=== PATIENT | female | born 1975 | race Caucasian/White ===

== ENCOUNTER 2018-10-27 16:20 | Emergency (ER) | payer OTHER ==
[2018-10-27 16:25] VITALS: BP 138/89; PULSE 112; BMI 35.9
[2018-10-27] MEDS ORDERED: SODIUM CHLORIDE 1,000 ML IV STA ×2 (16:43→17:57)
[2018-10-27] MEDS ORDERED: ONDANSETRON 4 MG/2 ML VIAL IVPUSH ONE (17:04)
[2018-10-27] MEDS ORDERED: FAMOTIDINE 20 MG/50 ML IVPB 20 MG/50 ML MG IVPB ONE ×2 (17:04→17:44)
[2018-10-27] MEDS ORDERED: ONDANSETRON 4 MG/2 ML VIAL ONE (17:44)
--- NOTE | 2018-10-27 17:44 | PDOC ---
History of Present Illness - General Chief Complaint: Vomiting/Diarrhea Stated Complaint: VOMITING, DIARRHEA Time Seen by Provider: 10/27/18 16:43 History Source: Patient Exam Limitations: No Limitations - History of Present Illness Initial Comments: 43 yo F presents with nausea, vomiting, diarrhea x1 day. She states she has had recent congestion and cough, then today she suddenly developed nausea, vomiting , diarrhea. Emesis is bilious, non-bloody. She c/o diffuse abdominal cramping. Last episode of vomiting was a few hours ago, but she is still nauseated. Denies fever. No known sick contacts. Past History - Past Medical History Allergies/Adverse Reactions: Allergies Allergy/AdvReac Type Severity Reaction Status Date / Time No Known Allergies Allergy Verified 10/27/18 16:22 Home Medications: Ambulatory Orders Norethindrone AC-Eth Estradiol [Loestrin 21 1-20 Tablet] 1 each PO DAILY Ondansetron [Zofran Odt -] 4 mg SL TID #12 od.tablet 10/27/18 COPD: No - Surgical History Cholecystectomy: Yes - Suicide/Smoking/Psychosocial Hx Smoking Status: No Smoking History: Never smoked Have you smoked in the past 12 months: No Number of Cigarettes Smoked Daily: 0 Information on smoking cessation initiated: No Hx Alcohol Use: No Drug/Substance Use Hx: No Substance Use Type: None Review of Systems - Review of Systems Able to Perform ROS?: Yes Comments:: GENERAL/CONSTITUTIONAL: No fever or chills. No weakness. HEAD, EYES, EARS, NOSE AND THROAT: No change in vision. No ear pain or discharge. No sore throat. CARDIOVASCULAR: No chest pain or shortness of breath. RESPIRATORY: No cough, wheezing, or hemoptysis. GASTROINTESTINAL: +Nausea, vomiting, diarrhea. GENITOURINARY: No dysuria, frequency, or change in urination. MUSCULOSKELETAL: No joint or muscle swelling. No neck or back pain. +Myalgias. SKIN: No rash NEUROLOGIC: No headache, vertigo, loss of consciousness, or change in strength/ sensation. ENDOCRINE: No increased thirst. No abnormal weight change. HEMATOLOGIC/LYMPHATIC: No anemia, easy bleeding, or history of blood clots. ALLERGIC/IMMUNOLOGIC: No hives or skin allergy. *Physical Exam - Vital Signs Last Vital Signs Temp Pulse Resp BP Pulse Ox 112 H 20 138/89 99 10/27/18 16:20 10/27/18 16:20 10/27/18 16:20 10/27/18 16:20 - Physical Exam Comments: GENERAL: Awake, alert, and fully oriented, in no acute distress HEAD: No signs of trauma EYES: PERRLA, EOMI, sclera anicteric, conjunctiva clear ENT: Auricles normal inspection, hearing grossly normal, nares patent, oropharynx clear without exudates. Dry mucosa NECK: Normal ROM, supple, no lymphadenopathy, JVD, or masses LUNGS: Breath sounds equal, clear to auscultation bilaterally. No wheezes, and no crackles HEART: Tachycardic with regular rhythm, normal S1 and S2, no murmurs, rubs or gallops ABDOMEN: Soft, diffuse mild tenderness, normoactive bowel sounds. No guarding, no rebound. No masses EXTREMITIES: Normal range of motion, no edema. No clubbing or cyanosis. No cords, erythema, or tenderness NEUROLOGICAL: Cranial nerves II through XII grossly intact. Normal speech, normal gait SKIN: Warm, Dry, normal turgor, no rashes or lesions noted. Moderate Sedation - Procedure Monitoring Vital Signs: Procedure Monitoring Vital Signs Temperature Pulse Rate 112 H 10/27/18 16:20 Respiratory Rate 20 10/27/18 16:20 Blood Pressure 138/89 10/27/18 16:20 O2 Sat by Pulse Oximetry (%) 99 10/27/18 16:20 ED Treatment Course - LABORATORY CBC & Chemistry Diagram: 10/27/18 17:37 10/27/18 17:37 Medical Decision Making - Medical Decision Making 10/27/18 19:[address] Olmedo at shift change, reassess after IV fluids. She already reports feeling much better. No signs of acute abdomen. I have sent a flu swab, as she has had symptoms for the past few days, has a daughter who is special needs at home, is not able to get the flu vaccine. *DC/Admit/Observation/Transfer Diagnosis at time of Disposition: Nausea vomiting and diarrhea - Discharge Dispostion Disposition: HOME Condition at time of disposition: Stable Decision to Admit order: No - Prescriptions Prescriptions: Ondansetron [Zofran Odt -] 4 mg SL TID #12 od.tablet - Referrals - Patient Instructions Printed Discharge Instructions: DI for Diarrhea and Traveler's Diarrhea -- Adult, DI for Vomiting -- Adult - Post Discharge Activity
[2018-10-27 17:49] LABS: BASO % 1.2 % (0-2.0); EOS % 0.1 % (0-4.5); HEMATOCRIT 46.6 % (32.4-45.2); HEMOGLOBIN 15.2 GM/dl (10.7-15.3); LYMPH % 8.9 % (8-40); MCH 29.8 pg (25.7-33.7); MCHC 32.5 g/dl (32.0-36.0); MEAN CELL VOLUME 91.5 fl (80-96); MEAN PLT VOLUME 8.9 fl (7.5-11.1); MONO % 0.7 % (3.8-10.2); NEUT % 89.1 % (42.8-82.8); PLATELET COUNT 417 K/MM3 (134-434); RBC 5.09 M/mm3 (3.60-5.2); RDW 12.5 % (11.6-15.6); WHITE BLOOD COUNT 17.6 K/mm3 (4.0-10.8)
[2018-10-27 18:02] LABS: ALK PHOS 58 U/L (32-92); ANION GAP 11 MMOL/L (8-16); BILIRUBIN,TOTAL 0.5 mg/dl (0.2-1.0); BLOOD UREA NITROGEN 16 mg/dl (7-18); CALCIUM 9.1 mg/dl (8.4-10.2); CHLORIDE 103 mmol/L (98-107); CO2 21 mmol/L (22-28); CREATININE 0.7 mg/dl (0.6-1.3); GLUCOSE,RANDOM 146 mg/dl (74-106); POTASSIUM 3.7 mmol/L (3.5-5.1); SGOT/AST 24 U/L (10-42); SGPT/ALT 20 U/L (10-40); SODIUM 135 mmol/L (136-145)
[2018-10-27] MEDS ORDERED: KETOROLAC TROMETHAMINE 30 MG/1 ML VIAL IVPUSH ONE (18:31)
[2018-10-27] MEDS ORDERED: KETOROLAC TROMETHAMINE 30 MG/1 ML VIAL ONE (18:33)
[2018-10-27 18:36] LABS: URINE APPEARANCE Slightly; URINE BILIRUBIN 1+ (NEGATIVE); URINE COLOR Yellow; URINE GLUCOSE (UA) Negative (NEGATIVE); URINE KETONE Trace (NEGATIVE); URINE LEUK ESTERASE Negative (NEGATIVE); URINE NITRITE Negative (NEGATIVE); URINE PROTEIN 2+ (NEGATIVE); URINE UROBILINOGEN 0.2 (0.2-1.0)
[2018-10-27 19:05] LABS: LIPASE 86 U/L (73-393)
[2018-10-27] MEDS ORDERED: SODIUM CHLORIDE 1,000 ML IV ONE (19:19)
--- NOTE | 2018-10-27 19:20 | PDOC ---
*Physical Exam - Vital Signs Last Vital Signs Temp Pulse Resp BP Pulse Ox 112 H 20 138/89 99 10/27/18 16:20 10/27/18 16:20 10/27/18 16:20 10/27/18 16:20 ED Treatment Course - LABORATORY CBC & Chemistry Diagram: 10/27/18 17:37 10/27/18 17:37 - ADDITIONAL ORDERS Additional order review: Laboratory Results 10/27/18 10/27/18 10/27/18 17:37 17:37 17:30 Sodium 135 L Potassium 3.7 Chloride 103 Carbon Dioxide 21 L Anion Gap 11 BUN 16 Creatinine 0.7 Creat Clearance w eGFR > 60 Random Glucose 146 H Calcium 9.1 Total Bilirubin 0.5 AST 24 ALT 20 Alkaline Phosphatase 58 Total Protein 8.0 Albumin 4.0 Lipase 86 Urine Color Yellow Urine Appearance Slightly Urine pH 5.0 Ur Specific [place] >= 1.030 Urine Protein 2+ H Urine Glucose (UA) Negative Urine Ketones Trace Urine Blood 2+ H Urine Nitrite Negative Urine Bilirubin 1+ H Urine Urobilinogen 0.2 Ur Leukocyte Esterase Negative Urine HCG, Qual Negative 10/27/18 17:37 RBC 5.09 MCV 91.5 MCHC 32.5 RDW 12.5 MPV 8.9 Neutrophils % 89.1 H Lymphocytes % 8.9 Monocytes % 0.7 L Eosinophils % 0.1 Basophils % 1.2 - Medications Given in the ED: ED Medications Discontinued Medications Generic Name Dose Route Start Last Admin Trade Name Freq PRN Reason Stop Dose Admin Sodium Chloride 1,000 mls @ 1,000 mls/hr 10/27/18 16:43 10/27/18 17:00 Normal Saline - IV 10/27/18 17:42 1,000 mls/hr ASDIR STA Administration Famotidine/Sodium Chloride 20 mg in 50 mls @ 100 mls/hr 10/27/18 17:04 17:52 Pepcid 20 Mg Premixed Ivpb - IVPB 10/27/18 17:33 100 mls/hr ONCE ONE Administration Sodium Chloride 1,000 mls @ 1,000 mls/hr 10/27/18 17:57 10/27/18 18:44 Normal Saline - IV 10/27/18 18:56 1,000 mls/hr ASDIR STA Administration Ketorolac Tromethamine 30 mg 10/27/18 18:31 10/27/18 18:36 Toradol Injection - IVPUSH 10/27/18 18:32 30 mg ONCE ONE Administration Ondansetron HCl 4 mg 10/27/18 17:04 10/27/18 17:40 Zofran Injection IVPUSH 10/27/18 17:05 4 mg ONCE ONE Administration Progress Note - Progress Note Progress Note: Care of this patient was transferred to md from Dr. Scruggs at 1900 hrs. This is a 43-year-old female who comes in complaining of nausea vomiting and diarrhea times one day. On arrival patient was clinically mildly dehydrated. A workup was initiated including labs and the IV fluids. Patient has finished 1 L of fluid and is feeling much better. Patient's white count is moderately elevated Will reassess and reevaluate after second liter of fluid. Patient feels much better after second liter of fluid able to tolerate by mouth' s. Patient discharged home. *DC/Admit/Observation/Transfer Diagnosis at time of Disposition: Nausea vomiting and diarrhea - Discharge Dispostion Disposition: HOME Condition at time of disposition: Stable - Referrals - Patient Instructions Printed Discharge Instructions: DI for Diarrhea and Traveler's Diarrhea -- Adult, DI for Vomiting -- Adult - Post Discharge Activity
[2018-10-27 21:14] LABS: EPI CELLS FEW /HPF; URINE BACTERIA 4+ /hpf (NEGATIVE)
== END 2018-10-27 19:33 | disposition home or self-care (01) ==
LOC: FER 16:20
PROC: 3E033GC Introduction of Other Therapeutic Substance into Peripheral Vein, Percutaneous Approach (ICD-10-PCS; principal; 2018-10-27)
PROC: 3E0333Z Introduction of Anti-inflammatory into Peripheral Vein, Percutaneous Approach (ICD-10-PCS; 2018-10-27)
PROC: 3E033GC Introduction of Other Therapeutic Substance into Peripheral Vein, Percutaneous Approach (ICD-10-PCS; 2018-10-27)
PROC: 3E0337Z Introduction of Electrolytic and Water Balance Substance into Peripheral Vein, Percutaneous Approach (ICD-10-PCS; 2018-10-27)
DX: R11.2 Nausea with vomiting, unspecified (principal); R19.7 Diarrhea, unspecified
CPT/HCPCS: 36415; 80053; 81003; 81015; 83690; 84703; 85025; 87804; 99283-25; J7030

== ENCOUNTER 2018-12-21 18:25 | Emergency (ER) | payer OTHER ==
--- NOTE | 2018-12-21 18:35 | PDOC ---
History of Present Illness - General History Source: Patient Exam Limitations: No Limitations <AmnaJuliana sarmiento - Last Filed: 12/21/18 18:31> - General History Source: Patient Exam Limitations: No Limitations - History of Present Illness Initial Comments: 12/21/18 18:41 The patient is a 43 year old female, with no significant PMH, who presents to the emergency department complaining of flu symptoms beginning last night that progressively worsened today. The patient states she endorses associated symptoms of body aches, chills, generalizes weakness and nasal congestion, no relief with Dayquil and Ibuprofen. The patient mentions her daughter has the flu and has been in contact with her. The patient denies chest pain, shortness of breath, headache and dizziness. Denies , nausea, vomit, diarrhea and constipation. Denies dysuria, frequency, urgency and hematuria. Allergies: NKDA Past surgical history: None reported Social history: None reported PCP: None reported <Sarah Quiroz - Last Filed: 12/21/18 18:43> - General Chief Complaint: Cold Symptoms Stated Complaint: flu like Time Seen by Provider: 12/21/18 18:31 Past History - Past Medical History COPD: No - Surgical History Cholecystectomy: Yes - Suicide/Smoking/Psychosocial Hx Smoking Status: No Smoking History: Never smoked Have you smoked in the past 12 months: No Number of Cigarettes Smoked Daily: 0 Hx Alcohol Use: No Drug/Substance Use Hx: No Substance Use Type: None <DemetriusJuliana - Last Filed: 12/21/18 18:31> <Sarah Quiroz - Last Filed: 12/21/18 18:43> - Past Medical History Allergies/Adverse Reactions: Allergies Allergy/AdvReac Type Severity Reaction Status Date / Time No Known Allergies Allergy Verified 12/21/18 18:29 Home Medications: Ambulatory Orders Norethindrone AC-Eth Estradiol [Loestrin 21 1-20 Tablet] 1 each PO DAILY Ibuprofen [Motrin -] 400 mg PO PRN PRN 12/21/18 Oseltamivir Phosphate [Tamiflu] 75 mg PO DAILY #7 capsule MDD 1 12/21/18 Review of Systems - Review of Systems Able to Perform ROS?: Yes Comments:: 12/21/18 18:42 GENERAL/CONSTITUTIONAL:+Chills +Weakness HEAD, EYES, EARS, NOSE AND THROAT: No change in vision. No ear pain or discharge. No sore throat. CARDIOVASCULAR:. No shortness of breath. RESPIRATORY: No cough, wheezing, or hemoptysis. GASTROINTESTINAL: No nausea, vomiting, diarrhea or constipation. GENITOURINARY: No dysuria, frequency, or change in urination. MUSCULOSKELETAL:+Body aches. No neck or back pain. SKIN: No rash NEUROLOGIC: No headache, vertigo, loss of consciousness, or change in strength/ sensation. ENDOCRINE: No increased thirst. No abnormal weight change. HEMATOLOGIC/LYMPHATIC: No anemia, easy bleeding, or history of blood clots. ALLERGIC/IMMUNOLOGIC: No hives or skin allergy. <Sarah Quiroz - Last Filed: 12/21/18 18:43> *Physical Exam - Vital Signs Last Vital Signs Temp Pulse Resp BP Pulse Ox 101.2 F H 112 H 20 140/82 97 12/21/18 18:29 12/21/18 18:29 12/21/18 18:29 12/21/18 18:29 12/21/18 18:29 - Physical Exam Comments: 12/21/18 18:42 GENERAL: Awake, alert, and fully oriented, in no acute distress HEAD: No signs of trauma EYES: PERRLA, EOMI, sclera anicteric, conjunctiva clear ENT:+Clear Rhinorrhea. Auricles normal inspection, hearing grossly normal, oropharynx clear without exudates. Moist mucosa NECK: Normal ROM, supple, no lymphadenopathy, JVD, or masses LUNGS: Breath sounds equal, clear to auscultation bilaterally. No wheezes, and no crackles HEART:+Tachycardia. Regular rate and rhythm, normal S1 and S2, no murmurs, rubs or gallops EXTREMITIES: Normal range of motion, no edema. No clubbing or cyanosis. No cords, erythema, or tenderness NEUROLOGICAL: Cranial nerves II through XII grossly intact. Normal speech. SKIN: Warm, Dry, normal turgor, no rashes or lesions noted. <Sarah Quiroz - Last Filed: 12/21/18 18:43> Moderate Sedation - Procedure Monitoring Vital Signs: Procedure Monitoring Vital Signs Temperature 101.2 F H 12/21/18 18:29 Pulse Rate 112 H 12/21/18 18:29 Respiratory Rate 20 12/21/18 18:29 Blood Pressure 140/82 12/21/18 18:29 O2 Sat by Pulse Oximetry (%) 97 12/21/18 18:29 <Sarah Quiroz - Last Filed: 12/21/18 18:43> Medical Decision Making - Medical Decision Making 12/21/18 18:31 43 yo F no pmhx here wtih flu exposure daughter confirmed flu 2 days ago, now body aches, nasal congestion , no n/v positive fever and chills. took motrin 400 and tylenol just prior to arrival. also has been taking day quil. no n/v no rash. no lung disease on exam lungs clear mild tachycardia. rhinorrhea. dw pt regardign risk benefit of tamiflu. she would like prescription. told if she develop n/v to discontinue. <Juliana Romo - Last Filed: 12/21/18 18:31> *DC/Admit/Observation/Transfer <Juliana Romo - Last Filed: 12/21/18 18:31> - Attestations Scribe Attestion: 12/21/18 18:43 Documentation prepared by Sarah Quiroz, acting as phlebotomist medical lab assistant for Juliana Romo MD. <Sarah Quiroz - Last Filed: 12/21/18 18:43> Diagnosis at time of Disposition: Influenza - Prescriptions Prescriptions: Oseltamivir Phosphate [Tamiflu] 75 mg PO DAILY #7 capsule MDD 1 - Patient Instructions Printed Discharge Instructions: Influenza Additional Instructions: you need to drink plenty of fluids and rest. you can take motrin 600 mg every 8 hrs as needed for pain. take tylenol 500 mg every 6 hrs as needed for pain and fever. return for vomiting, shortness of breath, confusion or any concerns. you should not go to work until without fever for 48 hrs. - Post Discharge Activity Forms/Work/School Notes: Back to Work
[2018-12-21 18:45] VITALS: BP 140/82; PULSE 112; TEMP 101.2; BMI 35.9
== END 2018-12-21 18:49 | disposition home or self-care (01) ==
LOC: FER 18:25
DX: J11.1 Influenza due to unidentified influenza virus with other respiratory manifestations (principal)
CPT/HCPCS: 99281-25

== ENCOUNTER 2020-11-06 12:43 | Emergency (ER) | payer OTHER ==
[2020-11-06 12:53] VITALS: BP 128/87; PULSE 87; TEMP 98.6; BMI 34.9
[2020-11-06] MEDS ORDERED: ACETAMINOPHEN 500 MG TABLET (FP) PO ONE (13:07)
[2020-11-06] MEDS ORDERED: LIDOCAINE 5% TOPICAL PATCH TP ONE (13:07)
[2020-11-06] MEDS ORDERED: ACETAMINOPHEN 325 MG TABLET (FP) ONE (13:09)
[2020-11-06] MEDS ORDERED: LIDOCAINE 5% TOPICAL PATCH ONE (13:09)
[2020-11-06] MEDS ORDERED: KETOROLAC TROMETHAMINE 60 MG/2 ML VIAL IM ONE (13:18)
[2020-11-06] MEDS ORDERED: METHOCARBAMOL 500 MG TABLET PO ONE (13:22)
[2020-11-06] MEDS ORDERED: KETOROLAC TROMETHAMINE 60 MG/2 ML VIAL ONE (13:24)
[2020-11-06] MEDS ORDERED: METHOCARBAMOL 500 MG TABLET ONE (13:24)
[2020-11-06] MEDS ORDERED: oxyCODONE HCL 5 MG TABLET PO ONE (14:17)
[2020-11-06] MEDS ORDERED: oxyCODONE HCL 5 MG TABLET ONE (14:19)
[2020-11-06] MEDS ORDERED: LIDOCAINE PATCH REMOVAL MC SCH (22:00)
== END 2020-11-06 15:40 | disposition home or self-care (01) ==
LOC: FER 12:43
PROC: 3E0233Z Introduction of Anti-inflammatory into Muscle, Percutaneous Approach (ICD-10-PCS; principal; 2020-11-06)
DX: M25.512 Pain in left shoulder (principal)
CPT/HCPCS: 73030-TC-LT-FY; 81025; 99284-25

== ENCOUNTER 2022-02-11 03:20 | Emergency (ER) | payer OTHER ==
[2022-02-11 03:29] VITALS: BP 148/80; PULSE 81; TEMP 97.6; BMI 35.5
[2022-02-11] MEDS ORDERED: METHOCARBAMOL 750 MG TAB PO STA (03:45)
[2022-02-11] MEDS ORDERED: KETOROLAC TROMETHAMINE 60 MG/2 ML VIAL IM ONE (03:45)
[2022-02-11] MEDS ORDERED: predniSONE 20 MG TABLET (UD) PO ONE (03:46)
[2022-02-11] MEDS ORDERED: KETOROLAC TROMETHAMINE 60 MG/2 ML VIAL ONE (03:50)
[2022-02-11] MEDS ORDERED: METHOCARBAMOL 500 MG TABLET ONE (03:50)
[2022-02-11] MEDS ORDERED: predniSONE 20 MG TABLET (UD) ONE (03:51)
== END 2022-02-11 04:00 | disposition home or self-care (01) ==
LOC: FER 03:20
PROC: 3E023GC Introduction of Other Therapeutic Substance into Muscle, Percutaneous Approach (ICD-10-PCS; principal; 2022-02-11)
DX: M62.838 Other muscle spasm (principal)
CPT/HCPCS: 99284-25

== ENCOUNTER 2023-04-02 21:58 | Emergency (ER) | payer OTHER ==
[2023-04-02 22:15] VITALS: BP 123/72; PULSE 92; RESP 18; TEMP 98.6; BMI 34.9
[2023-04-02] MEDS ORDERED: SODIUM CHLORIDE 1,000 ML IV STA (23:03)
[2023-04-02] MEDS ORDERED: ONDANSETRON 4 MG/2 ML VIAL IVPUSH ONE (23:03)
[2023-04-02] MEDS ORDERED: ONDANSETRON 4 MG/2 ML VIAL ONE (23:15)
[2023-04-02 23:20] LABS: HEMATOCRIT 23.1 % (32.4-45.2); HEMOGLOBIN 7.9 G/dL (10.7-15.3); MCH 30.8 pg (25.7-33.7); MCHC 34.2 g/dl (32.0-36.0); MEAN CELL VOLUME 89.9 fl (80-96); MEAN PLT VOLUME 8.5 fl (7.5-11.1); PLATELET COUNT 356.7 10^3/uL (134-434); RBC 2.57 10^6/uL (3.60-5.2); WHITE BLOOD COUNT 14.9 10^3/uL (4.0-10.8)
[2023-04-02 23:29] LABS: PLATELET ESTIMATE ADEQUATE
[2023-04-02 23:42] LABS: ALBUMIN 3.4 g/dl (3.4-5.0); BILIRUBIN,TOTAL 0.2 mg/dl (0.2-1); CALCIUM 8.7 mg/dl (8.5-10); CREATININE 0.7 mg/dl (0.55-1.3); POTASSIUM 3.8 mmol/L (3.5-5.1); TOT PROT 6.6 g/dl (6.4-8.2)
== END 2023-04-03 00:22 | disposition home or self-care (01) ==
LOC: FER 21:58
PROC: 3E033GC Introduction of Other Therapeutic Substance into Peripheral Vein, Percutaneous Approach (ICD-10-PCS; principal; 2023-04-02)
PROC: 3E0337Z Introduction of Electrolytic and Water Balance Substance into Peripheral Vein, Percutaneous Approach (ICD-10-PCS; 2023-04-02)
DX: N92.4 Excessive bleeding in the premenopausal period (principal)
CPT/HCPCS: 36415; 80053; 85027; 99284-25

== ENCOUNTER 2024-08-19 10:50 | Emergency (ER) | payer OTHER ==
[2024-08-19 10:59] VITALS: BP 122/56; PULSE 73; RESP 20; TEMP 98.8; BMI 34.0
[2024-08-19] MEDS ORDERED: LIDOCAINE 5% TOPICAL PATCH ONE (11:30)
[2024-08-19] MEDS ORDERED: KETOROLAC TROMETHAMINE 15 MG/ML VIAL ONE (11:30)
[2024-08-19] MEDS ORDERED: ACETAMINOPHEN 325 MG TABLET (FP) ONE (11:30)
[2024-08-19] MEDS: ACETAMINOPHEN 325 MG TABLET (FP) PO ONE (11:35)
[2024-08-19] MEDS: KETOROLAC TROMETHAMINE 15 MG/ML VIAL IM ONE (11:35)
[2024-08-19] MEDS: LIDOCAINE 5% TOPICAL PATCH TP ONE (12:25)
[2024-08-19] MEDS ORDERED: LIDOCAINE PATCH REMOVAL MC ONE (22:00)
== END 2024-08-19 13:18 | disposition home or self-care (01) ==
LOC: FER 10:50
PROC: 3E0133Z Introduction of Anti-inflammatory into Subcutaneous Tissue, Percutaneous Approach (ICD-10-PCS; principal; 2024-08-19)
DX: M75.31 Calcific tendinitis of right shoulder (principal); M25.511 Pain in right shoulder; G89.29 Other chronic pain
CPT/HCPCS: 73030-TC-RT-FY; 99284-25